=== PATIENT | female | born 1980 | race Caucasian/White ===

== ENCOUNTER → 2017-12-24 | Outpatient (CLI) | payer MEDICARE, MEDICAID ==
[~2017-12-24] MED LIST: BENZ2TAB7 PO; CLON-528 PO; DOCU100C23 PO; DOCU100C59 PO; LEVO75TA PO; LORA10TA7 PO; TRAZ-143 PO
== END ==
LOC: RAD 12:15
PROVIDERS: ATTEND Physician Assistant
DX: S09.90XA Unspecified injury of head, initial encounter (principal); R56.9 Unspecified convulsions; F17.200 Nicotine dependence, unspecified, uncomplicated; X58.XXXA Exposure to other specified factors, initial encounter; Y93.89 Activity, other specified; Y92.89 Other specified places as the place of occurrence of the external cause; Y99.8 Other external cause status
CPT/HCPCS: 95816

== ENCOUNTER 2019-01-19 20:44 | Emergency (ER) | payer MEDICARE, MEDICAID ==
[~2019-01-19] VITALS: Ht 167.6 cm; Wt 93.3 kg
[~2019-01-19 20:44] MED LIST changes: +DOCU-273 PO; -DOCU100C23 PO; -TRAZ-143 PO; +TRAZ-251 PO
[2019-01-19 23:15] VITALS: BP 121/86
[2019-01-19 23:54] LABS: BASOPHILS # (AUTO) 0.1 X10'3 (0-0.2); BASOPHILS % (AUTO) 1.1 % (0-1); EOSINOPHILS # (AUTO) 0.6 X10'3 (0-0.9); EOSINOPHILS % (AUTO) 5.8 % (0-6); HEMATOCRIT 40.1 % (35.0-45.0); HEMOGLOBIN 13.9 g/dl (12.0-16.0); LYMPHOCYTES # (AUTO) 3.8 X10'3 (1.1-4.8); LYMPHOCYTES % (AUTO) 34.8 % (21-51); MEAN CORPUSCULAR HGB CONC 34.6 g/dL (33.0-36.5); MEAN CORPUSCULAR VOLUME 92.4 FL (78-98); MEAN PLATELET VOLUME 7.5 FL (7.4-10.4); MONOCYTES # (AUTO) 0.9 X10'3 (0-0.9); MONOCYTES % (AUTO) 7.9 % (2-12); NEUTROPHILS # (AUTO) 5.5 X10'3 (1.8-7.7); NEUTROPHILS % (AUTO) 50.4 % (42-75); PLATELET COUNT 302 X10'3 (140-440); RED BLOOD COUNT 4.34 X10'6 (4.20-5.60); RED CELL DISTRIBUTION WIDTH 12.8 % (11.5-14.5)
[2019-01-20 00:07] LABS: ALANINE AMINOTRANSFERASE 17 U/L (12-78); ALBUMIN 3.8 G/DL (3.4-5.0); ALKALINE PHOSPHATASE 90 IU/L (46-116); ANION GAP 4 (8-16); ASPARTATE AMINO TRANSFERASE 14 U/L (10-37); BILIRUBIN,TOTAL 0.2 MG/DL (0.1-1.0); BLOOD UREA NITROGEN 13 MG/DL (7-18); BUN/CREATININE RATIO 15.9 (6.6-38.0); CALCIUM 8.5 MG/DL (8.5-10.1); CHLORIDE 107 MMOL/L (99-107); CREATININE 0.82 MG/DL (0.40-0.90); GLUCOSE 93 MG/DL (70-104); LIPASE 140 U/L (73-393); POTASSIUM 3.8 MMOL/L (3.5-5.1); SODIUM 139 MMOL/L (135-145); TOTAL CARBON DIOXIDE 27.6 MMOL/L (24-32); TOTAL PROTEIN 7.6 G/DL (6.4-8.2); eGFR 78 ML/MIN
== END 2019-01-20 01:11 | disposition home or self-care (01) ==
LOC: ER 20:45
DX: R10.13 Epigastric pain (principal); K92.1 Melena; R10.12 Left upper quadrant pain; R68.83 Chills (without fever); R10.30 Lower abdominal pain, unspecified; R14.0 Abdominal distension (gaseous); R61 Generalized hyperhidrosis; E03.9 Hypothyroidism, unspecified; Z79.899 Other long term (current) drug therapy; Z88.0 Allergy status to penicillin; Z87.19 Personal history of other diseases of the digestive system; Z88.8 Allergy status to other drugs, medicaments and biological substances; Z90.49 Acquired absence of other specified parts of digestive tract
CPT/HCPCS: 36415; 80053; 83690; 85025; 99283

== ENCOUNTER 2019-03-21 10:07 | Emergency (ER) | payer MEDICARE, MEDICAID ==
[~2019-03-21] VITALS: Ht 167.6 cm; Wt 84.1 kg
[2019-03-21 13:38] LABS: URINE HCG NEGATIVE (NEG)
[2019-03-21 13:45] LABS: BASOPHILS # (AUTO) 0.1 X10'3 (0-0.2); BASOPHILS % (AUTO) 1.1 % (0-1); EOSINOPHILS # (AUTO) 0.7 X10'3 (0-0.9); EOSINOPHILS % (AUTO) 6.6 % (0-6); HEMATOCRIT 40.1 % (35.0-45.0); HEMOGLOBIN 13.7 g/dl (12.0-16.0); LYMPHOCYTES % (AUTO) 28.7 % (21-51); MEAN CORPUSCULAR HEMOGLOBIN 32.1 PG (27.0-31.0); MEAN CORPUSCULAR HGB CONC 34.1 g/dL (33.0-36.5); MEAN CORPUSCULAR VOLUME 93.9 FL (78-98); MEAN PLATELET VOLUME 7.4 FL (7.4-10.4); MONOCYTES # (AUTO) 0.6 X10'3 (0-0.9); MONOCYTES % (AUTO) 6.2 % (2-12); NEUTROPHILS % (AUTO) 57.4 % (42-75); PLATELET COUNT 325 X10'3 (140-440); RED BLOOD COUNT 4.27 X10'6 (4.20-5.60); RED CELL DISTRIBUTION WIDTH 12.7 % (11.5-14.5); WHITE BLOOD COUNT 10.4 X10'3 (4.5-11.0)
[2019-03-21 13:55] LABS: ALANINE AMINOTRANSFERASE 20 U/L (12-78); ALBUMIN 3.7 G/DL (3.4-5.0); ALKALINE PHOSPHATASE 78 IU/L (46-116); ANION GAP 7 (8-16); ASPARTATE AMINO TRANSFERASE 11 U/L (10-37); BILIRUBIN,TOTAL 0.4 MG/DL (0.1-1.0); BLOOD UREA NITROGEN 10 MG/DL (7-18); BUN/CREATININE RATIO 11.8 (6.6-38.0); CALCIUM 8.5 MG/DL (8.5-10.1); CHLORIDE 108 MMOL/L (99-107); CREATININE 0.85 MG/DL (0.40-0.90); GLUCOSE 85 MG/DL (70-104); LIPASE 73 U/L (73-393); SODIUM 142 MMOL/L (135-145); TOTAL CARBON DIOXIDE 26.9 MMOL/L (24-32); TOTAL PROTEIN 7.5 G/DL (6.4-8.2); eGFR 75 ML/MIN
[2019-03-21 14:33] VITALS: BP 136/76
== END 2019-03-21 14:34 | disposition home or self-care (01) ==
LOC: ER 11:37
DX: G89.29 Other chronic pain (principal); R10.30 Lower abdominal pain, unspecified; E03.9 Hypothyroidism, unspecified; F41.9 Anxiety disorder, unspecified; F31.9 Bipolar disorder, unspecified; F20.9 Schizophrenia, unspecified; Z90.49 Acquired absence of other specified parts of digestive tract; Z88.0 Allergy status to penicillin; Z88.8 Allergy status to other drugs, medicaments and biological substances; Z79.899 Other long term (current) drug therapy
CPT/HCPCS: 36415; 80053; 81025; 83690; 85025; 99283

== ENCOUNTER 2019-08-26 20:42 | Emergency (ER) | payer MEDICARE, MEDICAID ==
[~2019-08-26] VITALS: Ht 165.1 cm; Wt 84.1 kg
[2019-08-26] MEDS ORDERED: OLANZapine 2.5MG tablet PO SCH (22:30)
[2019-08-26] MEDS ORDERED: cetirizine 10mg tablet PO SCH (22:30)
[2019-08-26 22:54] VITALS: BP 135/92
[2019-08-27] MEDS ORDERED: SERT100T10 PO (03:16)
[2019-08-27] MEDS ORDERED: CARI4.5C PO (03:16)
[2019-08-27] MEDS ORDERED: OLAN15TA17 PO (03:16)
== END 2019-08-26 22:55 | disposition home or self-care (01) ==
LOC: ER 20:42
DX: F31.9 Bipolar disorder, unspecified (principal); F20.9 Schizophrenia, unspecified; E03.9 Hypothyroidism, unspecified; F41.9 Anxiety disorder, unspecified; Z76.0 Encounter for issue of repeat prescription; Z90.49 Acquired absence of other specified parts of digestive tract; Z59.0 Homelessness; Z88.8 Allergy status to other drugs, medicaments and biological substances; Z88.0 Allergy status to penicillin; Z79.899 Other long term (current) drug therapy
CPT/HCPCS: 99283

== ENCOUNTER 2019-08-27 00:07 | Emergency (ER) | payer MEDICARE, MEDICAID ==
[~2019-08-27] VITALS: Ht 165.1 cm; Wt 84.1 kg
[2019-08-27 00:10] VITALS: BP 118/79
[2019-08-27 00:40] LABS: URINE HCG NEGATIVE (NEG)
[2019-08-27 00:53] LABS: URINE AMPHETAMINE SCREEN NEGATIVE (Neg); URINE BARBITUATE SCREEN NEGATIVE (Neg); URINE BENZODIAZEPINES SCREEN NEGATIVE (Neg); URINE CANNABINOID SCREEN NEGATIVE (Neg); URINE COCAINE SCREEN NEGATIVE (Neg); URINE METHADONE SCREEN NEGATIVE (Neg); URINE OPIATE SCREEN NEGATIVE (Neg); URINE PHENCYCLIDINE SCREEN NEGATIVE (Neg)
[2019-08-27 01:13] LABS: CLARITY,URINE CLEAR (Clear); COLOR,URINE YELLOW (Yellow); GLUCOSE, URINE NEGATIVE (Neg); KETONES,URINE NEGATIVE (Neg); LEUKOCYTE ESTERASE ,URINE NEGATIVE (Neg); NITRITES, URINE NEGATIVE (Neg); OCCULT BLOOD,URINE NEGATIVE (Neg); PH,URINE 7.5 (4.8-8.0); PROTEIN,URINE NEGATIVE (Neg); UROBILINOGEN,URINE 0.2 E.U/dL (0.2-1.0)
[2019-08-27 01:22] LABS: UA COLLECTION TYPE CLN CATCH MIDSTREAM
[2019-08-27] MEDS ORDERED: CARI4.5C PO (03:16)
[2019-08-27] MEDS ORDERED: OLAN15TA17 PO (03:16)
[2019-08-27] MEDS ORDERED: SERT100T10 PO (03:16)
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
[2019-08-27 03:28] LABS: ALANINE AMINOTRANSFERASE 20 U/L (12-78); ALBUMIN 3.7 G/DL (3.4-5.0); ALBUMIN/GLOBULIN RATIO 1.1 (1.1-1.5); ALKALINE PHOSPHATASE 75 IU/L (46-116); ANION GAP 8 (8-16); ASPARTATE AMINO TRANSFERASE 22 U/L (10-37); BILIRUBIN,TOTAL 0.3 MG/DL (0.1-1.0); BLOOD UREA NITROGEN 11 MG/DL (7-18); BUN/CREATININE RATIO 13.1 (6.6-38.0); CALCIUM 8.1 MG/DL (8.5-10.1); CHLORIDE 106 MMOL/L (99-107); CREATININE 0.84 MG/DL (0.40-0.90); GLUCOSE 94 MG/DL (70-104); POTASSIUM 3.8 MMOL/L (3.5-5.1); SODIUM 141 MMOL/L (135-145); TOTAL CARBON DIOXIDE 27.2 MMOL/L (24-32); TOTAL PROTEIN 7.2 G/DL (6.4-8.2); eGFR 76 ML/MIN
[2019-08-27 03:39] LABS: VALPROATE < 3.0 UG/ML (50-100)
[2019-08-27 03:42] LABS: ACETAMINOPHEN < 2.0 UG/ML (10-30); ETHANOL < 0.010 GM/DL (0.0-0.010)
[2019-08-27 03:43] LABS: BASOPHILS # (AUTO) 0.1 X10'3 (0-0.2); BASOPHILS % (AUTO) 0.9 % (0-1); EOSINOPHILS # (AUTO) 0.3 X10'3 (0-0.9); EOSINOPHILS % (AUTO) 3.3 % (0-6); HEMATOCRIT 38.7 % (35.0-45.0); HEMOGLOBIN 13.1 g/dl (12.0-16.0); LYMPHOCYTES % (AUTO) 38.1 % (21-51); MEAN CORPUSCULAR HGB CONC 33.8 g/dL (33.0-36.5); MEAN CORPUSCULAR VOLUME 91.8 FL (78-98); MEAN PLATELET VOLUME 7.7 FL (7.4-10.4); MONOCYTES # (AUTO) 0.6 X10'3 (0-0.9); MONOCYTES % (AUTO) 6.1 % (2-12); NEUTROPHILS # (AUTO) 5.4 X10'3 (1.8-7.7); NEUTROPHILS % (AUTO) 51.6 % (42-75); PLATELET COUNT 359 X10'3 (140-440); RED BLOOD COUNT 4.21 X10'6 (4.20-5.60); RED CELL DISTRIBUTION WIDTH 12.7 % (11.5-14.5); WHITE BLOOD COUNT 10.4 X10'3 (4.5-11.0)
[2019-08-27] MEDS ORDERED: levoTHYROXINE 75mcg tablet PO SCH (08:00)
[2019-08-27] MEDS ORDERED: CARIPRAZINE 1.5 MG CAPSULE PO SCH (08:00)
[2019-08-27] MEDS ORDERED: OLANZAPINE 5 MG TABLET PO SCH (08:00)
--- NOTE | 2019-08-27 11:54 | NUR ---
[facility] DISCUSS [facility] EVAL AND PLAN OF CARE.
[2019-08-27] MEDS ORDERED: sertraline 50mg tablet PO SCH (21:00)
== END 2019-08-27 15:14 ==
LOC: ER 00:09
DX: R45.851 Suicidal ideations (principal); F31.9 Bipolar disorder, unspecified; F29 Unspecified psychosis not due to a substance or known physiological condition; F20.9 Schizophrenia, unspecified; E03.9 Hypothyroidism, unspecified; F41.9 Anxiety disorder, unspecified; Z90.49 Acquired absence of other specified parts of digestive tract; Z59.0 Homelessness; Z88.0 Allergy status to penicillin; Z88.8 Allergy status to other drugs, medicaments and biological substances; Z79.899 Other long term (current) drug therapy
CPT/HCPCS: 36415; 80053; 80164; 80178; 80305; 80320; 80329; 81003; 81025; 84443; 85025; 99285

== ENCOUNTER 2019-08-27 17:07 | Emergency (ER) | payer MEDICARE, MEDICAID ==
[~2019-08-27] VITALS: Ht 165.1 cm; Wt 84.1 kg
[~2019-08-27 17:07] MED LIST changes: +CARI4.5C PO; +OLAN15TA17 PO; +SERT100T10 PO
[2019-08-27 17:12] VITALS: BP 111/70
== END 2019-08-27 21:21 | disposition home or self-care (01) ==
LOC: ER 17:08
DX: R45.851 Suicidal ideations (principal); F31.9 Bipolar disorder, unspecified; F20.9 Schizophrenia, unspecified; E03.9 Hypothyroidism, unspecified; Z90.49 Acquired absence of other specified parts of digestive tract; Z59.0 Homelessness; Z88.0 Allergy status to penicillin; Z88.8 Allergy status to other drugs, medicaments and biological substances; Z79.899 Other long term (current) drug therapy
CPT/HCPCS: 99284

== ENCOUNTER 2019-12-24 16:37 | Emergency (ER) | payer MEDICARE, MEDICAID ==
[~2019-12-24] VITALS: Ht 165.1 cm; Wt 94.9 kg
[~2019-12-24 16:37] MED LIST changes: -BENZ2TAB7 PO; -CLON-528 PO; -DOCU-273 PO; -DOCU100C59 PO; -LORA10TA7 PO; -TRAZ-251 PO
[2019-12-24] MEDS ORDERED: LORazepam 2 mg/ml vial IV ONE (18:10)
[2019-12-24] MEDS ORDERED: dexamethasone sod phosphate 10mg/ml inj IV STA (18:10)
[2019-12-24] MEDS ORDERED: metoclopramide 5 mg/ml inj IV ONE (18:10)
[2019-12-24] MEDS ORDERED: ketorolac trometh. 30mg/ml inj. IV ONE (18:10)
[2019-12-24] MEDS ORDERED: normal saline 1000ML IV soln IVB ONE (18:10)
[2019-12-24 19:43] VITALS: BP 132/83
--- NOTE | 2019-12-24 19:43 | NUR ---
pt reports no further symptoms. denies any nausea or dietz. able to ambulate with steady gait out to lobby. Pt provided hospital pay cab ride home for DC. stable vs.
== END 2019-12-24 19:46 | disposition home or self-care (01) ==
LOC: ER 16:38
DX: G43.909 Migraine, unspecified, not intractable, without status migrainosus (principal); E03.9 Hypothyroidism, unspecified; F41.9 Anxiety disorder, unspecified; F31.9 Bipolar disorder, unspecified; F20.9 Schizophrenia, unspecified; Z90.49 Acquired absence of other specified parts of digestive tract; Z59.0 Homelessness; Z88.0 Allergy status to penicillin; Z88.8 Allergy status to other drugs, medicaments and biological substances; Z79.899 Other long term (current) drug therapy
CPT/HCPCS: 96361; 96374; 96375; 99284; J1100; J1885; J2060; J2765; J7030

== ENCOUNTER 2020-01-22 19:12 | Emergency (ER) | payer MEDICARE, MEDICAID ==
[~2020-01-22] VITALS: Ht 165.1 cm; Wt 84.1 kg
[2020-01-22] MEDS ORDERED: normal saline 1000ML IV soln IV ONE (19:25)
[2020-01-22] MEDS ORDERED: ketorolac trometh. 30mg/ml inj. IV ONE (19:25)
[2020-01-22] MEDS ORDERED: LORazepam 2 mg/ml vial IV ONE (19:25)
[2020-01-22] MEDS ORDERED: haloperidol lactate 5mg/ml inj IM ONE (19:25)
[2020-01-22] MEDS ORDERED: proCHLORperazine 10 MG/2 ml inj IV ONE (19:25)
--- NOTE | 2020-01-22 21:07 | NUR ---
RE-ASSESSED PT. 2ND BOLUS OF NS 1L STILL INFUSING. ONCE ALL FLUIDS INFUSED, PT WILL BE DC'D PER MD ORDER. PT AWARE. PT RESTING WITH EYES CLOSED CURRENTLY, NO DISTRESS NOTED.
[2020-01-22 21:30] VITALS: BP 112/80
== END 2020-01-22 21:41 | disposition home or self-care (01) ==
LOC: ER 19:13
DX: G43.909 Migraine, unspecified, not intractable, without status migrainosus (principal); E03.9 Hypothyroidism, unspecified; F41.9 Anxiety disorder, unspecified; F31.9 Bipolar disorder, unspecified; R11.2 Nausea with vomiting, unspecified; F20.9 Schizophrenia, unspecified; Z86.69 Personal history of other diseases of the nervous system and sense organs; Z90.49 Acquired absence of other specified parts of digestive tract; Z59.0 Homelessness; Z88.0 Allergy status to penicillin; Z79.899 Other long term (current) drug therapy; Z88.8 Allergy status to other drugs, medicaments and biological substances
CPT/HCPCS: 96361; 96372; 96374; 96375; 99284; J0780; J1630; J1885; J2060; J7030

== ENCOUNTER 2020-02-23 19:56 | Emergency (ER) | payer MEDICARE, MEDICAID ==
[~2020-02-23] VITALS: Ht 162.6 cm; Wt 79.1 kg
[2020-02-23 20:02] VITALS: BP 127/88
== END 2020-02-23 21:16 | disposition home or self-care (01) ==
LOC: ER 19:57
DX: S00.86XD Insect bite (nonvenomous) of other part of head, subsequent encounter (principal); E03.9 Hypothyroidism, unspecified; F41.9 Anxiety disorder, unspecified; F31.9 Bipolar disorder, unspecified; F20.9 Schizophrenia, unspecified; F17.200 Nicotine dependence, unspecified, uncomplicated; Z86.69 Personal history of other diseases of the nervous system and sense organs; Z59.0 Homelessness; Z90.49 Acquired absence of other specified parts of digestive tract; Z88.0 Allergy status to penicillin; Z88.8 Allergy status to other drugs, medicaments and biological substances; Z79.899 Other long term (current) drug therapy
CPT/HCPCS: 99281

== ENCOUNTER 2020-03-16 12:39 | Emergency (ER) | payer MEDICARE, MEDICAID ==
[~2020-03-16] VITALS: Ht 152.4 cm; Wt 94.1 kg
--- NOTE | 2020-03-16 13:10 | NUR ---
concrete laborer at bedside
--- NOTE | 2020-03-16 13:24 | NUR ---
pt is 39 yo female c/o mid abd pain, difficulty urinating and having bowel movement, last BM was yesterday "loose", last time pt urinated was this am, denies plan for suicide "I just want to ...I have no intention of hurting myself", denies homicidal thought/plan, pt lives in [facility], compliant with taking psych meds, c/o delusions, auditory hallucinations, denies drug use, ETOH "one drink every 3-6 months", pt is calm and cooperative,
--- NOTE | 2020-03-16 13:34 | NUR ---
pt amb with steady gait to restroom, has been evaluated by provider
[2020-03-16 13:40] LABS: ALANINE AMINOTRANSFERASE 23 U/L (12-78); ALBUMIN 3.7 G/DL (3.4-5.0); ALKALINE PHOSPHATASE 86 IU/L (46-116); ANION GAP 10 (8-16); ASPARTATE AMINO TRANSFERASE 20 U/L (10-37); BILIRUBIN,TOTAL 0.4 MG/DL (0.1-1.0); BLOOD UREA NITROGEN 16 MG/DL (7-18); BUN/CREATININE RATIO 13.3 (6.6-38.0); CALCIUM 8.3 MG/DL (8.5-10.1); CHLORIDE 103 MMOL/L (99-107); GLUCOSE 86 MG/DL (70-104); POTASSIUM 4.2 MMOL/L (3.5-5.1); SODIUM 139 MMOL/L (135-145); TOTAL CARBON DIOXIDE 26.3 MMOL/L (24-32); TOTAL PROTEIN 7.5 G/DL (6.4-8.2); eGFR 50 ML/MIN
[2020-03-16] MEDS ORDERED: CARI4.5C PO (13:41)
[2020-03-16] MEDS ORDERED: CARI1.5C PO (13:41)
[2020-03-16 13:44] LABS: BASOPHILS # (AUTO) 0.1 X10'3 (0-0.2); BASOPHILS % (AUTO) 0.8 % (0-1); EOSINOPHILS # (AUTO) 0.4 X10'3 (0-0.9); HEMATOCRIT 40.3 % (35.0-45.0); HEMOGLOBIN 13.4 g/dl (12.0-16.0); LYMPHOCYTES # (AUTO) 2.8 X10'3 (1.1-4.8); LYMPHOCYTES % (AUTO) 24.6 % (21-51); MEAN CORPUSCULAR HEMOGLOBIN 30.5 PG (27.0-31.0); MEAN CORPUSCULAR HGB CONC 33.4 g/dL (33.0-36.5); MEAN CORPUSCULAR VOLUME 91.4 FL (78-98); MEAN PLATELET VOLUME 7.6 FL (7.4-10.4); MONOCYTES # (AUTO) 0.7 X10'3 (0-0.9); MONOCYTES % (AUTO) 6.2 % (2-12); NEUTROPHILS # (AUTO) 7.3 X10'3 (1.8-7.7); NEUTROPHILS % (AUTO) 64.4 % (42-75); PLATELET COUNT 315 X10'3 (140-440); RED BLOOD COUNT 4.41 X10'6 (4.20-5.60); RED CELL DISTRIBUTION WIDTH 13.1 % (11.5-14.5); WHITE BLOOD COUNT 11.3 X10'3 (4.5-11.0)
[2020-03-16 13:53] LABS: ETHANOL < 0.010 GM/DL (0.0-0.010)
[2020-03-16] MEDS ORDERED: LEVO100T PO (13:55)
[2020-03-16 14:09] LABS: CLARITY,URINE CLEAR (Clear); COLOR,URINE YELLOW (Yellow); GLUCOSE, URINE NEGATIVE (Neg); KETONES,URINE NEGATIVE (Neg); LEUKOCYTE ESTERASE ,URINE NEGATIVE (Neg); NITRITES, URINE NEGATIVE (Neg); OCCULT BLOOD,URINE TRACE-INTACT (Neg); PH,URINE 6.5 (4.8-8.0); PROTEIN,URINE NEGATIVE (Neg); UROBILINOGEN,URINE 0.2 E.U/dL (0.2-1.0)
[2020-03-16 14:10] LABS: URINE HCG NEGATIVE (NEG)
[2020-03-16 14:11] LABS: UA COLLECTION TYPE CLN CATCH MIDSTREAM
[2020-03-16 14:16] LABS: URINE AMPHETAMINE SCREEN NEGATIVE (Neg); URINE BARBITUATE SCREEN NEGATIVE (Neg); URINE BENZODIAZEPINES SCREEN NEGATIVE (Neg); URINE CANNABINOID SCREEN NEGATIVE (Neg); URINE COCAINE SCREEN NEGATIVE (Neg); URINE METHADONE SCREEN NEGATIVE (Neg); URINE OPIATE SCREEN NEGATIVE (Neg); URINE PHENCYCLIDINE SCREEN NEGATIVE (Neg)
[2020-03-16 14:19] LABS: SQUAMOUS EPITHELIAL CELL,UR MANY /LPF (FEW)
[2020-03-16 14:20] LABS: RBC,URINE 0-2 /HPF (0-2); WBC,URINE NONE SEEN /HPF (0-4)
--- NOTE | 2020-03-16 14:20 | NUR ---
pt is dressed in green scrubs, gave her sandwich, yogurt and water, juli well, no n/v
[2020-03-16 14:21] LABS: BACTERIA,URINE FEW /HPF (Neg)
--- NOTE | 2020-03-16 14:22 | NUR ---
clothing sheet done
--- NOTE | 2020-03-16 14:58 | NUR ---
report to Lupe RN, pt amb with steady gait from main ER to overflow
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
--- NOTE | 2020-03-16 17:09 | NUR ---
Pt continues to sleep. RR regular
--- NOTE | 2020-03-16 21:48 | NUR ---
Pt is sleeping comfortably on her right side with visible respirations and in direct line of sight of the nursing station. She does not show signs of pain or distress at this time.
--- NOTE | 2020-03-16 23:18 | NUR ---
Justice munson in [facility], [place] - 03/16/20 at 2318 by RU Patient is sleeping on his right side, in view from the nursing station.
--- NOTE | 2020-03-16 23:21 | NUR ---
Patient is up to bathroom to void. Normal gait. Patient in no distress save for a complaint of exhaustion. Patient tells this signwriter she rarely sleeps, even with medications. Patient is given warm blankets. Patient denies BM today, states loose stools yesterday. No complaints of pain at this time.
--- NOTE | 2020-03-17 03:03 | NUR ---
Patient sleeping on her back. In view from the nursing station.
--- NOTE | 2020-03-17 04:12 | NUR ---
Patient sleeping quietly, in view from nursing station.
--- NOTE | 2020-03-17 05:17 | NUR ---
Patient awoke for vital signs, returned to sleep. Patient repositions self.
[2020-03-17] MEDS ORDERED: OLANZAPINE 5 MG TABLET PO SCH (11:15)
[2020-03-17] MEDS ORDERED: levoTHYROXINE 100mcg tablet PO SCH (11:15)
[2020-03-17] MEDS ORDERED: CARIPRAZINE 1.5 MG CAPSULE PO SCH ×2 (11:15→21:00)
[2020-03-17 12:45] VITALS: BP 110/72
[2020-03-17] MEDS ORDERED: sertraline 50mg tablet PO SCH (21:00)
== END 2020-03-17 12:51 | disposition home or self-care (01) ==
LOC: ER 12:40
DX: R45.851 Suicidal ideations (principal); R53.81 Other malaise; R44.0 Auditory hallucinations; R11.10 Vomiting, unspecified; K59.00 Constipation, unspecified; E03.9 Hypothyroidism, unspecified; F41.9 Anxiety disorder, unspecified; F31.9 Bipolar disorder, unspecified; F20.9 Schizophrenia, unspecified; Z86.69 Personal history of other diseases of the nervous system and sense organs; Z90.49 Acquired absence of other specified parts of digestive tract; Z59.0 Homelessness; Z88.0 Allergy status to penicillin; Z88.8 Allergy status to other drugs, medicaments and biological substances; Z79.899 Other long term (current) drug therapy
CPT/HCPCS: 36415; 80053; 80305; 80320; 81001; 81025; 84439; 84443; 84480; 85025; 99285

== ENCOUNTER 2020-04-19 14:05 | Emergency (ER) | payer MEDICARE, MEDICAID ==
[~2020-04-19] VITALS: Ht 162.6 cm; Wt 79.5 kg
[~2020-04-19 14:05] MED LIST changes: +CARI1.5C PO; +LEVO100T PO; -LEVO75TA PO
--- NOTE | 2020-04-19 14:50 | NUR ---
Pt ambulatory to the restroom and provided a urine. Pt also relinquished all of her belongings and they have been secured. Pt is calm and cooperative with the staff.
[2020-04-19 15:06] LABS: CLARITY,URINE CLEAR (Clear); COLOR,URINE STRAW (Yellow); GLUCOSE, URINE NEGATIVE (Neg); KETONES,URINE NEGATIVE (Neg); LEUKOCYTE ESTERASE ,URINE SMALL (Neg); NITRITES, URINE NEGATIVE (Neg); OCCULT BLOOD,URINE MODERATE (Neg); PROTEIN,URINE NEGATIVE (Neg); UROBILINOGEN,URINE 0.2 E.U/dL (0.2-1.0)
[2020-04-19 15:07] LABS: UA COLLECTION TYPE CLN CATCH MIDSTREAM
[2020-04-19 15:13] LABS: BACTERIA,URINE FEW /HPF (Neg); SQUAMOUS EPITHELIAL CELL,UR FEW /LPF (FEW); WBC,URINE 0-4 /HPF (0-4)
[2020-04-19 15:24] LABS: BASOPHILS % (AUTO) 0.1 % (0-1); EOSINOPHILS # (AUTO) 0.3 X10'3 (0-0.9); EOSINOPHILS % (AUTO) 3.2 % (0-6); HEMATOCRIT 41.3 % (35.0-45.0); HEMOGLOBIN 14.1 g/dl (12.0-16.0); LYMPHOCYTES # (AUTO) 2.9 X10'3 (1.1-4.8); LYMPHOCYTES % (AUTO) 27.5 % (21-51); MEAN CORPUSCULAR HEMOGLOBIN 31.8 PG (27.0-31.0); MEAN CORPUSCULAR HGB CONC 34.2 g/dL (33.0-36.5); MEAN PLATELET VOLUME 7.8 FL (7.4-10.4); MONOCYTES # (AUTO) 0.6 X10'3 (0-0.9); MONOCYTES % (AUTO) 5.8 % (2-12); NEUTROPHILS # (AUTO) 6.6 X10'3 (1.8-7.7); NEUTROPHILS % (AUTO) 63.4 % (42-75); PLATELET COUNT 342 X10'3 (140-440); RED BLOOD COUNT 4.44 X10'6 (4.20-5.60); RED CELL DISTRIBUTION WIDTH 13.3 % (11.5-14.5); WHITE BLOOD COUNT 10.4 X10'3 (4.5-11.0)
[2020-04-19] MEDS ORDERED: SERT100T PO (15:35)
[2020-04-19 15:40] LABS: ALANINE AMINOTRANSFERASE 21 U/L (12-78); ALBUMIN 3.9 G/DL (3.4-5.0); ALKALINE PHOSPHATASE 94 IU/L (46-116); ANION GAP 5 (8-16); ASPARTATE AMINO TRANSFERASE 19 U/L (10-37); BILIRUBIN,TOTAL 0.3 MG/DL (0.1-1.0); BLOOD UREA NITROGEN 11 MG/DL (7-18); BUN/CREATININE RATIO 12.8 (6.6-38.0); CALCIUM 8.7 MG/DL (8.5-10.1); CHLORIDE 103 MMOL/L (99-107); CREATININE 0.86 MG/DL (0.40-0.90); GLUCOSE 89 MG/DL (70-104); SODIUM 137 MMOL/L (135-145); TOTAL CARBON DIOXIDE 28.6 MMOL/L (24-32); TOTAL PROTEIN 7.8 G/DL (6.4-8.2); eGFR 73 ML/MIN
--- NOTE | 2020-04-19 15:47 | NUR ---
Pt is resting in a position of comfort on the gurney. Pt is in line of sight of the nurse's station.
[2020-04-19 15:51] LABS: ETHANOL < 0.010 GM/DL (0.0-0.010)
--- NOTE | 2020-04-19 16:51 | NUR ---
Pt given a sandwich and some juice for a snack at this time. Report to Kaiden Cobb RN.
[2020-04-19 17:14] LABS: URINE HCG NEGATIVE (NEG)
[2020-04-19 17:22] LABS: URINE AMPHETAMINE SCREEN NEGATIVE (Neg); URINE BARBITUATE SCREEN NEGATIVE (Neg); URINE BENZODIAZEPINES SCREEN NEGATIVE (Neg); URINE CANNABINOID SCREEN NEGATIVE (Neg); URINE COCAINE SCREEN NEGATIVE (Neg); URINE METHADONE SCREEN NEGATIVE (Neg); URINE OPIATE SCREEN NEGATIVE (Neg); URINE PHENCYCLIDINE SCREEN NEGATIVE (Neg)
--- NOTE | 2020-04-19 17:29 | NUR ---
PT IN ROOM 22, LAYING ON RIGHT SIDE, NO DISTRESS NOTED. DIET SENT DOWN TO [facility]. CALLED LAB TO ADD TOX ACREEN. WILL CONTINUE TO MONITOR.
--- NOTE | 2020-04-19 17:59 | NUR ---
PT SITTING UP IN BED COLORING.
--- NOTE | 2020-04-19 18:01 | NUR ---
PACKET FAXED TO [facility]
--- NOTE | 2020-04-19 18:45 | NUR ---
Patient is sleeping quietly, in view from nursing station.
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
[2020-04-19] MEDS ORDERED: acetaminophen 325mg tablet PO ONE (19:55)
--- NOTE | 2020-04-19 20:00 | NUR ---
Patient ate a full dinner earlier. He is now sleeping quietly on his right side. In full view from the nursing station. Patient is quiet and cooperative with staff.
[2020-04-19] MEDS: CARIPRAZINE 1.5 MG CAPSULE PO SCH (20:20)
[2020-04-19] MEDS: sertraline 50mg tablet PO SCH (20:20)
--- NOTE | 2020-04-19 21:35 | NUR ---
Patient up to bathroom, he ambulates without problem. No distress. Back to bed and sleep.
--- NOTE | 2020-04-19 23:30 | NUR ---
Patient sleeping quietly on his right side.
--- NOTE | 2020-04-20 01:44 | NUR ---
Patient is sleeping quietly on her right side.
[2020-04-20] MEDS ORDERED: LORazepam 1 MG tablet PO ONE (03:15)
--- NOTE | 2020-04-20 03:24 | NUR ---
Patient awoke and was experiencing anxiety. This copywriter consulted with ER MD. PO Ativan 1mg given. Patient is medication compliant.
--- NOTE | 2020-04-20 04:00 | NUR ---
Sleeping quietly. supine position. Good color, RR is normal.
--- NOTE | 2020-04-20 06:21 | NUR ---
Patient is sleeping quietly on her left side.
--- NOTE | 2020-04-20 06:31 | NUR ---
Patient is sleeping quietly on his left side. No distress.
--- NOTE | 2020-04-20 08:19 | NUR ---
UP TO BR, ATE BREAKFAST. NO NEEDS AT THIS TIME
[2020-04-20] MEDS: OLANZAPINE 5 MG TABLET PO SCH (08:57)
[2020-04-20] MEDS: levoTHYROXINE 100mcg tablet PO SCH (08:57)
--- NOTE | 2020-04-20 09:27 | NUR ---
PT RESTING WITH EYES CLOSED ON BACK WITH SNORING RESP.
--- NOTE | 2020-04-20 11:34 | NUR ---
PT CONTINUES RESTING ON BACK RR EQUAL AND UNLABORED
[2020-04-20] MEDS: CARIPRAZINE 1.5 MG CAPSULE PO SCH ×2 (12:00→20:22)
--- NOTE | 2020-04-20 12:47 | NUR ---
pt resting with eyes closed on right side rr equal and unlabored.
--- NOTE | 2020-04-20 13:50 | NUR ---
PT AWAKE EATING LUNCH.
--- NOTE | 2020-04-20 14:50 | NUR ---
PT RESTING ON BACK RR EQUAL AND UNLABORED
--- NOTE | 2020-04-20 16:03 | NUR ---
PT RESTING ON BACK RR EQUAL AND UNLABORED. SNORING RESP
--- NOTE | 2020-04-20 16:57 | NUR ---
UP TO BR STEADY GAIT
[2020-04-20] MEDS ORDERED: acetaminophen 325mg tablet PO PRN (17:25)
--- NOTE | 2020-04-20 17:37 | NUR ---
PT C/O PAIN TO LEFT RIB AND BACK. ORDER FOR TYLENOL RECEIVED AND GIVEN. PT REQUESTED TO COLOR. CRAYONS AND COLOR BOOK GIVEN
--- NOTE | 2020-04-20 19:00 | NUR ---
Pt resting quietly, respirations normal, no s/s of distress.
--- NOTE | 2020-04-20 19:48 | NUR ---
Pt resting quietly, respirations normal, no s/s of distress.
[2020-04-20] MEDS: sertraline 50mg tablet PO SCH (20:23)
--- NOTE | 2020-04-20 21:32 | NUR ---
Pt up to restroom.
--- NOTE | 2020-04-20 22:39 | NUR ---
Pt resting quietly, respirations normal, no s/s of distress.
--- NOTE | 2020-04-21 00:39 | NUR ---
Pt up to restroom. Requested water.
[2020-04-21] MEDS ORDERED: LORazepam 1 MG tablet PO ONE (02:10)
[2020-04-21] MEDS: levoTHYROXINE 100mcg tablet PO SCH (08:09)
[2020-04-21] MEDS: OLANZAPINE 5 MG TABLET PO SCH (08:09)
[2020-04-21] MEDS: CARIPRAZINE 1.5 MG CAPSULE PO SCH ×2 (08:10→20:49)
[2020-04-21] MEDS ORDERED: nicotine 14mg patch - 24hr TD ONE (13:25)
--- NOTE | 2020-04-21 13:25 | NUR ---
SPOKE TO MD ABOUT PATIENT NEEDING NICOTINE PATCH, ORDERS PUT IN BY
--- NOTE | 2020-04-21 13:54 | NUR ---
PT. VOMITING, WAS INFORMED AND ORDERS WERE PUT IN BY .
[2020-04-21] MEDS ORDERED: haloperidol lactate 5mg/ml inj IM ONE (13:55)
--- NOTE | 2020-04-21 16:03 | NUR ---
PATIENT IS SLEEPING
--- NOTE | 2020-04-21 19:22 | NUR ---
Pt lying quietly in bed. She ate snack. Pleasant and cooperative. Denied SI. Pt sleepy dozed during conversation.
[2020-04-21] MEDS: sertraline 50mg tablet PO SCH (20:48)
--- NOTE | 2020-04-21 20:58 | NUR ---
Pt sleeping awakened easily for medications went back to sleep.
--- NOTE | 2020-04-21 23:14 | NUR ---
Pt. in bed sleeping/resting quietly.
--- NOTE | 2020-04-22 00:43 | NUR ---
Pt awake sitting quietly at bedside coloring.
--- NOTE | 2020-04-22 01:03 | NUR ---
Pt up to Nurses station talked about possible discharge plans. Declined any medications to help her sleep. Sitting at bedside looking at magazines at this time.
[2020-04-22 06:33] VITALS: BP 120/65
--- NOTE | 2020-04-22 07:50 | NUR ---
Pharmacy notified pt meds not all available and someone is to bring down.
[2020-04-22] MEDS: CARIPRAZINE 1.5 MG CAPSULE PO SCH (08:08)
[2020-04-22] MEDS: OLANZAPINE 5 MG TABLET PO SCH (08:08)
[2020-04-22] MEDS: levoTHYROXINE 100mcg tablet PO SCH (08:08)
--- NOTE | 2020-04-22 09:40 | NUR ---
Pt speaking with [facility] worker at bedside.
--- NOTE | 2020-04-22 13:14 | NUR ---
pt ate 100% of her lunch
--- NOTE | 2020-04-22 14:00 | NUR ---
Pt awaiting transport to go to [facility].
== END 2020-04-22 16:22 ==
LOC: ER 14:06
DX: F79 Unspecified intellectual disabilities (principal); E03.9 Hypothyroidism, unspecified; F41.9 Anxiety disorder, unspecified; F31.9 Bipolar disorder, unspecified; F20.9 Schizophrenia, unspecified; Z86.69 Personal history of other diseases of the nervous system and sense organs; Z90.89 Acquired absence of other organs; Z59.0 Homelessness; Z88.0 Allergy status to penicillin; Z88.8 Allergy status to other drugs, medicaments and biological substances; Z79.899 Other long term (current) drug therapy
CPT/HCPCS: 36415; 80053; 80305; 80320; 81001; 81025; 84443; 85025; 96372; 99285

== ENCOUNTER 2020-10-01 15:39 | Emergency (ER) | payer MEDICARE, MEDICAID ==
[~2020-10-01] VITALS: Ht 157.5 cm; Wt 98.2 kg
[~2020-10-01 15:39] MED LIST changes: +SERT100T PO; -SERT100T10 PO
[2020-10-01 17:05] LABS: URINE HCG NEGATIVE (NEG)
[2020-10-01 17:16] LABS: URINE AMPHETAMINE SCREEN NEGATIVE (Neg); URINE BARBITUATE SCREEN NEGATIVE (Neg); URINE BENZODIAZEPINES SCREEN NEGATIVE (Neg); URINE CANNABINOID SCREEN NEGATIVE (Neg); URINE COCAINE SCREEN NEGATIVE (Neg); URINE METHADONE SCREEN NEGATIVE (Neg); URINE OPIATE SCREEN NEGATIVE (Neg); URINE PHENCYCLIDINE SCREEN NEGATIVE (Neg)
[2020-10-01 17:28] LABS: BASOPHILS # (AUTO) 0.1 X10'3 (0-0.2); BASOPHILS % (AUTO) 1.2 % (0-1); EOSINOPHILS # (AUTO) 0.4 X10'3 (0-0.9); EOSINOPHILS % (AUTO) 3.5 % (0-6); HEMATOCRIT 39.6 % (35.0-45.0); HEMOGLOBIN 13.4 g/dl (12.0-16.0); LYMPHOCYTES # (AUTO) 3.4 X10'3 (1.1-4.8); MEAN CORPUSCULAR HEMOGLOBIN 30.9 PG (27.0-31.0); MEAN CORPUSCULAR HGB CONC 33.7 g/dL (33.0-36.5); MEAN CORPUSCULAR VOLUME 91.8 FL (78-98); MEAN PLATELET VOLUME 7.6 FL (7.4-10.4); MONOCYTES # (AUTO) 0.7 X10'3 (0-0.9); MONOCYTES % (AUTO) 6.9 % (2-12); NEUTROPHILS # (AUTO) 6.2 X10'3 (1.8-7.7); NEUTROPHILS % (AUTO) 57.4 % (42-75); PLATELET COUNT 300 X10'3 (140-440); RED BLOOD COUNT 4.32 X10'6 (4.20-5.60); RED CELL DISTRIBUTION WIDTH 12.7 % (11.5-14.5); WHITE BLOOD COUNT 10.9 X10'3 (4.5-11.0)
[2020-10-01 17:34] LABS: ALANINE AMINOTRANSFERASE 27 U/L (12-78); ALBUMIN 3.7 G/DL (3.4-5.0); ALKALINE PHOSPHATASE 91 IU/L (46-116); ANION GAP 9 (8-16); ASPARTATE AMINO TRANSFERASE 25 U/L (10-37); BILIRUBIN,TOTAL 0.3 MG/DL (0.1-1.0); BLOOD UREA NITROGEN 13 MG/DL (7-18); BUN/CREATININE RATIO 18.3 (6.6-38.0); CHLORIDE 104 MMOL/L (99-107); CREATININE 0.71 MG/DL (0.40-0.90); GLUCOSE 91 MG/DL (70-104); POTASSIUM 4.1 MMOL/L (3.5-5.1); SODIUM 142 MMOL/L (135-145); TOTAL PROTEIN 7.4 G/DL (6.4-8.2); eGFR > 90 ML/MIN
[2020-10-01] MEDS ORDERED: NAPR-1166 PO (17:41)
[2020-10-01 17:44] LABS: ETHANOL < 0.010 GM/DL (0.0-0.010)
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
--- NOTE | 2020-10-01 19:27 | NUR ---
One to one with the patient who was very cooperative but sleepy. She stated that prior to calling for help she had taken all of her evening medications. She stated that "I've been experiencing different mental developements. I've been blanking out and was loosing track of time. I have a delerium of voices telling me what I can and can't do. They tell me to kill myself" She also reports visual hallucinations of shadows and feels like people are constantly touching her. She was seen by the [facility] heat treat worker and they are going to try and safety plan her to the [facility] tomorrow with support from the [facility] team.
[2020-10-01] MEDS ORDERED: naproxen 375mg tablet PO PRN (19:40)
[2020-10-01] MEDS ORDERED: CARIPRAZINE 1.5 MG CAPSULE PO PRN (19:40)
[2020-10-01] MEDS: sertraline 50mg tablet PO SCH (19:54)
--- NOTE | 2020-10-01 22:19 | NUR ---
The patient has been sleeping soundly since being seen by [facility] odd bundle worker. She is snoring.
--- NOTE | 2020-10-01 23:23 | NUR ---
The patient was up to the bathroom. Stated she was doing well and asked if mental health was coming in to see her. She was reassured that mental health would be talking with her again in the morning.
--- NOTE | 2020-10-02 01:00 | NUR ---
The patient appears to be sleeping
--- NOTE | 2020-10-02 02:24 | NUR ---
The patient appears to be sleeping
--- NOTE | 2020-10-02 05:47 | NUR ---
The patient appears to be sleeping at this time.
[2020-10-02] MEDS: olanzapine 10mg tablet PO SCH (08:29)
[2020-10-02] MEDS: CARIPRAZINE 1.5 MG CAPSULE PO SCH (08:29)
[2020-10-02] MEDS: levoTHYROXINE 100mcg tablet PO SCH (08:29)
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
--- NOTE | 2020-10-02 10:30 | NUR ---
Pt. informed that she will not be accepted to the [facility] because she is unable to follow [facility] rules.
--- NOTE | 2020-10-02 11:15 | NUR ---
COVID NEHEMIAH test performed and sent to lab. Results pending.
--- NOTE | 2020-10-02 12:00 | NUR ---
CALLIE (PT'S ROOMMATE): [phone] NATE (PT'S LANDLORD): [phone]
--- NOTE | 2020-10-02 13:00 | NUR ---
Pt. awake and eating lunch and bedside.
--- NOTE | 2020-10-02 15:00 | NUR ---
Pt. asleep on right side. Normal R&R of respirations noted. Pt. in no apparent distress.
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
--- NOTE | 2020-10-02 17:37 | NUR ---
Pt. talked at length of her feelings of not being in control of her own life. Pt. states, "I know the [facility] didn't want me to leave, but I'm my own person and sometimes you have to find out by mistakes". Pt. reported feeling depressed about her life-long mental illness. Pt. states, "I'm 40 now and I can't have kids". Pt. reports she does feel hopeful about the future, pt. states, "They are creating a lot of great new medicines and I'm hopeful for that". Pt. reports she is thankful when people listen to her.
--- NOTE | 2020-10-02 20:08 | NUR ---
Report to [facility]
--- NOTE | 2020-10-02 20:15 | NUR ---
The patient was accepted at [facility] in [facility]. Accepting MD is Dr. Dorman. Nurse to nurse to be done in the am,
[2020-10-02] MEDS: sertraline 50mg tablet PO SCH (20:22)
--- NOTE | 2020-10-02 20:29 | NUR ---
The patient appears very disheveled and has her hair sticking up all over. She was polite during the one to one nursing assessment. She stated that she has been feeling very tired. She stated voices are much less than prior to coming to the ER. She was made aware of plans to transfer to [facility] in the am.
--- NOTE | 2020-10-02 22:11 | NUR ---
The patient is awake and up to the bathroom. She is polite. She is asking questions about her placement.
--- NOTE | 2020-10-03 00:17 | NUR ---
The patient appears to be sleeping
--- NOTE | 2020-10-03 03:23 | NUR ---
The patient has been sleeping but restless at times.
--- NOTE | 2020-10-03 05:05 | NUR ---
The patient appears to be sleeping.
[2020-10-03 06:09] VITALS: BP 107/60
--- NOTE | 2020-10-03 06:39 | NUR ---
[facility] report from [facility], pt was just up to the nurses station asking about the facility she is to go to, calm, no needs at this time
--- NOTE | 2020-10-03 07:29 | NUR ---
pt sleeping no needs at this time
--- NOTE | 2020-10-03 08:25 | NUR ---
spoke to Farhana at [facility], gave nurse to nurse report
[2020-10-03] MEDS: CARIPRAZINE 1.5 MG CAPSULE PO SCH (08:28)
[2020-10-03] MEDS: olanzapine 10mg tablet PO SCH (08:28)
[2020-10-03] MEDS: levoTHYROXINE 100mcg tablet PO SCH (08:28)
--- NOTE | 2020-10-03 08:44 | NUR ---
pt awake, accepted meds, ate breakfast, no needs at this time
--- NOTE | 2020-10-03 09:30 | NUR ---
pt ambulated to the br, calm, no needs at this time
--- NOTE | 2020-10-03 10:31 | NUR ---
pt is supine in bed, no needs at this time
--- NOTE | 2020-10-03 11:50 | NUR ---
Farhana at [facility] called for ETA
--- NOTE | 2020-10-03 12:03 | NUR ---
pt sitting on the end of her bed, calm, no needs at this time
--- NOTE | 2020-10-03 14:22 | NUR ---
PT SUPINE IN BED, ASLEEP, REGULAR BREATHING PRESENT, NO NEEDS AT THIS TIME
[2020-10-03] MEDS ORDERED: nicotine 14mg patch - 24hr TD ONE (14:55)
--- NOTE | 2020-10-03 15:30 | NUR ---
PT IS AWAKE, UP TO THE NURSES STATION, GETTING WORRIED ABOUT BEING ABLE TO SMOKE
--- NOTE | 2020-10-03 16:30 | NUR ---
PT IS AWAKE, WANTS TO CHANGE SHEETS ON HER BED
== END 2020-10-03 17:42 ==
LOC: ER 15:40
DX: F20.9 Schizophrenia, unspecified (principal); Z20.822 Contact with and (suspected) exposure to COVID-19; F25.9 Schizoaffective disorder, unspecified; G40.909 Epilepsy, unspecified, not intractable, without status epilepticus; E03.9 Hypothyroidism, unspecified; G89.29 Other chronic pain; F41.9 Anxiety disorder, unspecified; F32.9 Major depressive disorder, single episode, unspecified; F17.200 Nicotine dependence, unspecified, uncomplicated; Z88.0 Allergy status to penicillin; Z88.8 Allergy status to other drugs, medicaments and biological substances; Z79.899 Other long term (current) drug therapy
CPT/HCPCS: 36415; 80053; 80305; 80320; 81025; 84443; 85025; 87426; 99285

== ENCOUNTER 2021-03-08 14:22 | Emergency (ER) | payer MEDICARE, MEDICAID ==
[~2021-03-08] VITALS: Ht 165.1 cm; Wt 99.0 kg
[~2021-03-08 14:22] MED LIST changes: +NAPR-1166 PO; -OLAN15TA17 PO; +OLAN15TA35 PO
[2021-03-08 14:38] VITALS: BP 123/77
== END 2021-03-08 15:05 | disposition home or self-care (01) ==
LOC: ER 14:23
DX: Z20.822 Contact with and (suspected) exposure to COVID-19 (principal); G40.909 Epilepsy, unspecified, not intractable, without status epilepticus; E03.9 Hypothyroidism, unspecified; G89.29 Other chronic pain; Z88.0 Allergy status to penicillin; Z88.8 Allergy status to other drugs, medicaments and biological substances; Z79.899 Other long term (current) drug therapy; Z90.49 Acquired absence of other specified parts of digestive tract
CPT/HCPCS: 87635; 99283; C9803

== ENCOUNTER 2021-04-19 12:01 | Emergency (ER) | payer MEDICARE, MEDICAID ==
[~2021-04-19] VITALS: Ht 165.1 cm; Wt 100.0 kg
[2021-04-19 12:12] VITALS: BP 119/70
[2021-04-19 12:33] LABS: URINE HCG NEGATIVE (NEG)
[2021-04-19 12:34] LABS: UA COLLECTION TYPE CLN CATCH MIDSTREAM
[2021-04-19 12:36] LABS: CLARITY,URINE CLOUDY (Clear); COLOR,URINE YELLOW (Yellow); PH,URINE 6.5 (4.8-8.0)
[2021-04-19 12:37] LABS: GLUCOSE, URINE NEGATIVE (Neg); KETONES,URINE NEGATIVE (Neg); LEUKOCYTE ESTERASE ,URINE NEGATIVE (Neg); NITRITES, URINE NEGATIVE (Neg); OCCULT BLOOD,URINE LARGE (Neg); PROTEIN,URINE TRACE mg/dl (Neg); UROBILINOGEN,URINE 0.2 E.U/dL (0.2-1.0)
[2021-04-19 12:41] LABS: AMORPHOUS URATES 1+; BACTERIA,URINE FEW /HPF (Neg); MUCUS STRANDS FEW /LPF (Neg); RBC,URINE 0-2 /HPF (0-2); SQUAMOUS EPITHELIAL CELL,UR MANY /LPF (FEW); WBC,URINE 0-4 /HPF (0-4)
== END 2021-04-19 13:56 | disposition home or self-care (01) ==
LOC: ER 12:01
DX: E03.9 Hypothyroidism, unspecified (principal); G89.29 Other chronic pain; F41.9 Anxiety disorder, unspecified; F31.9 Bipolar disorder, unspecified; F20.9 Schizophrenia, unspecified; Z32.02 Encounter for pregnancy test, result negative; Z90.89 Acquired absence of other organs; Z88.0 Allergy status to penicillin; Z88.8 Allergy status to other drugs, medicaments and biological substances; Z79.899 Other long term (current) drug therapy
CPT/HCPCS: 81001; 81025; 99283

== ENCOUNTER 2021-12-20 10:05 | Emergency (ER) | payer OTHER, MEDICAID ==
[~2021-12-20] VITALS: Ht 165.1 cm; Wt 95.0 kg
[~2021-12-20 10:05] MED LIST changes: -CARI1.5C PO; -CARI4.5C PO; +CARI6CAP PO; +CHOL500050 PO; +CIME200T12 PO; +DICL25TA10 PO; -NAPR-1166 PO; +NICO-687 TD; +NICO-907 BC; +OLAN10TA3 PO; -OLAN15TA35 PO
[2021-12-20 11:07] VITALS: BP 136/89
[2021-12-20 11:59] LABS: BASOPHILS # (AUTO) 0.1 X10'3 (0-0.2); BASOPHILS % (AUTO) 0.7 % (0-1); EOSINOPHILS # (AUTO) 0.2 X10'3 (0-0.9); EOSINOPHILS % (AUTO) 1.5 % (0-6); HEMATOCRIT 38.9 % (35.0-45.0); HEMOGLOBIN 13.1 g/dl (12.0-16.0); LYMPHOCYTES # (AUTO) 3.1 X10'3 (1.1-4.8); MEAN CORPUSCULAR HEMOGLOBIN 29.8 PG (27.0-31.0); MEAN CORPUSCULAR HGB CONC 33.5 g/dL (33.0-36.5); MEAN CORPUSCULAR VOLUME 88.9 FL (78-98); MEAN PLATELET VOLUME 7.3 FL (7.4-10.4); MONOCYTES # (AUTO) 0.5 X10'3 (0-0.9); MONOCYTES % (AUTO) 4.9 % (2-12); NEUTROPHILS # (AUTO) 6.9 X10'3 (1.8-7.7); NEUTROPHILS % (AUTO) 63.9 % (42-75); PLATELET COUNT 312 X10'3 (140-440); RED BLOOD COUNT 4.38 X10'6 (4.20-5.60); WHITE BLOOD COUNT 10.7 X10'3 (4.5-11.0)
[2021-12-20 12:11] LABS: ALANINE AMINOTRANSFERASE 15 U/L (12-78); ALBUMIN 3.6 G/DL (3.4-5.0); ALBUMIN/GLOBULIN RATIO 0.9 (1.1-1.5); ALKALINE PHOSPHATASE 85 IU/L (46-116); ANION GAP 7 (8-16); ASPARTATE AMINO TRANSFERASE 14 U/L (10-37); BILIRUBIN,TOTAL 0.4 MG/DL (0.1-1.0); BLOOD UREA NITROGEN 11 MG/DL (7-18); BUN/CREATININE RATIO 13.4 (6.6-38.0); CALCIUM 8.7 MG/DL (8.5-10.1); CHLORIDE 106 MMOL/L (99-107); CREATININE 0.82 MG/DL (0.40-0.90); GLUCOSE 94 MG/DL (70-104); POTASSIUM 4.3 MMOL/L (3.5-5.1); SODIUM 141 MMOL/L (135-145); TOTAL CARBON DIOXIDE 28.1 MMOL/L (24-32); TOTAL PROTEIN 7.7 G/DL (6.4-8.2); eGFR 77 ML/MIN
== END 2021-12-20 14:19 | disposition home or self-care (01) ==
LOC: ER 10:05
DX: M62.838 Other muscle spasm (principal); R20.0 Anesthesia of skin; E03.9 Hypothyroidism, unspecified; G89.29 Other chronic pain; F41.9 Anxiety disorder, unspecified; F31.9 Bipolar disorder, unspecified; F20.9 Schizophrenia, unspecified; Z86.69 Personal history of other diseases of the nervous system and sense organs; Z90.89 Acquired absence of other organs; Z88.0 Allergy status to penicillin; Z88.8 Allergy status to other drugs, medicaments and biological substances; Z79.899 Other long term (current) drug therapy
CPT/HCPCS: 36415; 80053; 85025; 93005; 99284

== ENCOUNTER 2022-01-08 08:53 | Emergency (ER) | payer OTHER, MEDICAID ==
[~2022-01-08] VITALS: Ht 165.1 cm; Wt 102.3 kg
[2022-01-08 09:27] VITALS: BP 132/95
[2022-01-08] MEDS ORDERED: NAPR-56 PO (09:52)
[2022-01-08] MEDS ORDERED: naproxen 500mg tablet PO ONE (09:55)
== END 2022-01-08 10:31 | disposition home or self-care (01) ==
LOC: ER 08:54
DX: G89.29 Other chronic pain (principal); M25.552 Pain in left hip; E03.9 Hypothyroidism, unspecified; Z90.49 Acquired absence of other specified parts of digestive tract; Z88.0 Allergy status to penicillin; Z88.8 Allergy status to other drugs, medicaments and biological substances; Z79.2 Long term (current) use of antibiotics; Z79.899 Other long term (current) drug therapy
CPT/HCPCS: 29505; 73502; 99284

== ENCOUNTER 2022-11-22 15:48 | Emergency (ER) | payer OTHER, MEDICAID ==
[~2022-11-22] VITALS: Ht 162.6 cm; Wt 117.0 kg
[2022-11-22] MEDS ORDERED: ipratropium/albuterol 3ml nebule NEB ONE (15:55)
[2022-11-22] MEDS ORDERED: predniSONE 20 mg tablet PO ONE (15:55)
[2022-11-22] MEDS ORDERED: cephalexin 250mg capsule PO ONE (16:45)
[2022-11-22] MEDS ORDERED: PRED20TA PO (16:49)
[2022-11-22] MEDS ORDERED: CEPH250T PO (16:49)
[2022-11-22] MEDS ORDERED: ALBU6.7H14 INH (16:49)
[2022-11-22 17:36] VITALS: BP 126/89
== END 2022-11-22 17:37 | disposition home or self-care (01) ==
LOC: ER 15:48
DX: J20.9 Acute bronchitis, unspecified (principal); Z20.822 Contact with and (suspected) exposure to COVID-19; Z71.6 Tobacco abuse counseling; R05.9 Cough, unspecified; E03.9 Hypothyroidism, unspecified; G89.29 Other chronic pain; M54.50 Low back pain, unspecified; F31.9 Bipolar disorder, unspecified; Z88.0 Allergy status to penicillin; Z88.8 Allergy status to other drugs, medicaments and biological substances
CPT/HCPCS: 71045; 87811; 94640; 99284; J7512; 94760

== ENCOUNTER 2023-10-03 16:54 | Emergency (ER) | payer OTHER, MEDICAID ==
[~2023-10-03] VITALS: Ht 165.1 cm; Wt 100.0 kg
[~2023-10-03 16:54] MED LIST changes: +ALBU6.7H14 INH
[2023-10-03 17:37] LABS: BASOPHILS # (AUTO) 0.1 X10'3 (0-0.2); BASOPHILS % (AUTO) 0.9 % (0-1); EOSINOPHILS # (AUTO) 0.2 X10'3 (0-0.9); EOSINOPHILS % (AUTO) 1.4 % (0-6); HEMATOCRIT 39.2 % (35.0-45.0); HEMOGLOBIN 13.4 g/dl (12.0-16.0); LYMPHOCYTES # (AUTO) 3.1 X10'3 (1.1-4.8); LYMPHOCYTES % (AUTO) 25.4 % (21-51); MEAN CORPUSCULAR HEMOGLOBIN 30.6 PG (27.0-31.0); MEAN CORPUSCULAR HGB CONC 34.1 g/dL (33.0-36.5); MEAN CORPUSCULAR VOLUME 89.7 FL (78-98); MONOCYTES # (AUTO) 0.6 X10'3 (0-0.9); MONOCYTES % (AUTO) 4.5 % (2-12); NEUTROPHILS # (AUTO) 8.4 X10'3 (1.8-7.7); NEUTROPHILS % (AUTO) 67.8 % (42-75); PLATELET COUNT 327 X10'3 (140-440); RED BLOOD COUNT 4.37 X10'6 (4.20-5.60); RED CELL DISTRIBUTION WIDTH 13.6 % (11.5-14.5); WHITE BLOOD COUNT 12.4 X10'3 (4.5-11.0)
[2023-10-03 17:39] LABS: ALBUMIN 3.6 G/DL (3.4-5.0); ANION GAP 11 (8-16); BLOOD UREA NITROGEN 6 MG/DL (7-18); BUN/CREATININE RATIO 7.3 (10.0-20.0); CALCIUM 8.5 MG/DL (8.5-10.1); CHLORIDE 104 MMOL/L (99-107); CREATININE 0.82 MG/DL (0.40-0.90); GLUCOSE 98 MG/DL (70-104); POTASSIUM 3.9 MMOL/L (3.5-5.1); SODIUM 142 MMOL/L (135-145); TOTAL CARBON DIOXIDE 26.9 MMOL/L (24-32); eCRCL 80 ML/MIN; eGFR 76 ML/MIN
[2023-10-03 17:40] LABS: ETHANOL < 10 MG/DL (<10)
[2023-10-03 18:13] LABS: URINE HCG NEGATIVE (NEG)
[2023-10-03] MEDS: normal saline 1000ML IV soln IVB ONE (18:14)
[2023-10-03 18:29] LABS: BILIRUBIN,URINE NEGATIVE (Neg); CLARITY,URINE CLEAR (Clear); COLOR,URINE AMBER (Yellow); GLUCOSE, URINE NEGATIVE (Neg); KETONES,URINE NEGATIVE (Neg); LEUKOCYTE ESTERASE ,URINE NEGATIVE (Neg); NITRITES, URINE NEGATIVE (Neg); OCCULT BLOOD,URINE NEGATIVE (Neg); PH,URINE 6.5 (4.8-8.0); PROTEIN,URINE NEGATIVE (Neg); UROBILINOGEN,URINE 0.2 E.U/dL (0.2-1.0)
[2023-10-03 18:33] LABS: UA COLLECTION TYPE CLN CATCH MIDSTREAM
[2023-10-03 19:00] LABS: URINE AMPHETAMINE SCREEN NEGATIVE (Neg); URINE BARBITUATE SCREEN NEGATIVE (Neg); URINE BENZODIAZEPINES SCREEN NEGATIVE (Neg); URINE CANNABINOID SCREEN NEGATIVE (Neg); URINE COCAINE SCREEN NEGATIVE (Neg); URINE METHADONE SCREEN NEGATIVE (Neg); URINE OPIATE SCREEN NEGATIVE (Neg); URINE PHENCYCLIDINE SCREEN NEGATIVE (Neg)
[2023-10-03] MEDS: famotidine/PF 10 mg/ml inj IV ONE (19:05)
[2023-10-03] MEDS: ondansetron/PF 4mg/2ml inj IV ONE (19:05)
[2023-10-03 19:20] LABS: LIPASE 16 U/L (16-77); THYROID STIMULATING HORMONE 4.69 ulU/ml (0.34-4.50)
[2023-10-03] MEDS ORDERED: OLAN20TA34 PO (20:34)
[2023-10-03] MEDS ORDERED: LEVO100T9 PO (20:34)
[2023-10-03] MEDS ORDERED: CARI1.5C PO (20:34)
[2023-10-03] MEDS ORDERED: DOCU100C40 PO (20:34)
[2023-10-03] MEDS ORDERED: FURO20TA4 PO (20:34)
[2023-10-03] MEDS ORDERED: CARI4.5C PO (20:34)
[2023-10-03] MEDS ORDERED: METF-900 PO (20:34)
[2023-10-03] MEDS: olanzapine 10mg tablet PO SCH ×2 (21:51→23:24)
[2023-10-03] MEDS: docusate sod 100mg capsule PO SCH (23:21)
[2023-10-03] MEDS: CARIPRAZINE 1.5 MG CAPSULE PO SCH (23:23)
[2023-10-04] MEDS ORDERED: CARIPRAZINE 1.5 MG CAPSULE PO SCH (00:05)
[2023-10-04] MEDS: metFORMIN 500mg tablet PO SCH (08:56)
[2023-10-04] MEDS: furosemide 20MG tablet PO SCH (08:56)
[2023-10-04] MEDS: levoTHYROXINE 100mcg tablet PO SCH (08:56)
[2023-10-04] MEDS: CARIPRAZINE 1.5 MG CAPSULE PO SCH (08:58)
[2023-10-04 10:18] VITALS: BP 117/66; PULSE 89; RESP 16; TEMP 98.6; O2SAT 95
[2023-10-04] MEDS ORDERED: olanzapine 10mg tablet PO SCH (21:00)
== END 2023-10-04 10:33 | disposition home or self-care (01) ==
LOC: ER 16:54
DX: F20.9 Schizophrenia, unspecified (principal); Z20.822 Contact with and (suspected) exposure to COVID-19; F29 Unspecified psychosis not due to a substance or known physiological condition; E03.9 Hypothyroidism, unspecified; F31.9 Bipolar disorder, unspecified; G89.29 Other chronic pain
CPT/HCPCS: 36415; 80048; 80305; 80320; 81003; 81025; 82948; 83690; 84443; 85025; 87811; 96361; 96374; 96375; 99284; J2405; J3490; J7030

== ENCOUNTER 2024-03-21 20:13 | Emergency (ER) | payer OTHER, MEDICAID ==
[~2024-03-21] VITALS: Ht 162.6 cm; Wt 123.6 kg
[~2024-03-21 20:13] MED LIST changes: -ALBU6.7H14 INH; +CARI1.5C PO; +CARI4.5C PO; -CARI6CAP PO; -CHOL500050 PO; -CIME200T12 PO; -DICL25TA10 PO; +DOCU100C40 PO; +FURO20TA4 PO; -LEVO100T PO; +LEVO100T9 PO; +METF-900 PO; -NICO-687 TD; -NICO-907 BC; -OLAN10TA3 PO; +OLAN20TA81 PO; -SERT100T PO
[2024-03-21 20:50] LABS: BASOPHILS # (AUTO) 0.1 X10'3 (0-0.2); BASOPHILS % (AUTO) 0.8 % (0-1); EOSINOPHILS # (AUTO) 0.3 X10'3 (0-0.9); EOSINOPHILS % (AUTO) 2.5 % (0-6); HEMATOCRIT 39.6 % (35.0-45.0); HEMOGLOBIN 13.1 g/dl (12.0-16.0); LYMPHOCYTES # (AUTO) 3.7 X10'3 (1.1-4.8); MEAN CORPUSCULAR HEMOGLOBIN 29.9 PG (27.0-31.0); MEAN CORPUSCULAR VOLUME 90.6 FL (78-98); MEAN PLATELET VOLUME 7.5 FL (7.4-10.4); MONOCYTES # (AUTO) 0.6 X10'3 (0-0.9); MONOCYTES % (AUTO) 6.2 % (2-12); NEUTROPHILS # (AUTO) 5.7 X10'3 (1.8-7.7); NEUTROPHILS % (AUTO) 54.5 % (42-75); PLATELET COUNT 317 X10'3 (140-440); RED BLOOD COUNT 4.37 X10'6 (4.20-5.60); RED CELL DISTRIBUTION WIDTH 13.7 % (11.5-14.5); WHITE BLOOD COUNT 10.4 X10'3 (4.5-11.0)
[2024-03-21 21:06] LABS: ALANINE AMINOTRANSFERASE 20 U/L (12-78); ALBUMIN 3.3 G/DL (3.4-5.0); ALBUMIN/GLOBULIN RATIO 0.9 (1.1-1.5); ALKALINE PHOSPHATASE 102 IU/L (46-116); ANION GAP 6 (8-16); ASPARTATE AMINO TRANSFERASE 13 U/L (10-37); BILIRUBIN,TOTAL 0.2 MG/DL (0.1-1.0); BLOOD UREA NITROGEN 14 MG/DL (7-18); BUN/CREATININE RATIO 15.7 (10.0-20.0); CALCIUM 8.1 MG/DL (8.5-10.1); CHLORIDE 104 MMOL/L (99-107); CREATININE 0.89 MG/DL (0.40-0.90); GLUCOSE 106 MG/DL (70-104); POTASSIUM 3.7 MMOL/L (3.5-5.1); SODIUM 137 MMOL/L (135-145); TOTAL CARBON DIOXIDE 26.6 MMOL/L (24-32); TOTAL PROTEIN 7.1 G/DL (6.4-8.2); eCRCL 70 ML/MIN; eGFR 69 ML/MIN
[2024-03-21 21:43] LABS: BILIRUBIN,URINE NEGATIVE (Neg); CLARITY,URINE CLEAR (Clear); COLOR,URINE YELLOW (Yellow); GLUCOSE, URINE NEGATIVE (Neg); KETONES,URINE NEGATIVE (Neg); LEUKOCYTE ESTERASE ,URINE NEGATIVE (Neg); NITRITES, URINE NEGATIVE (Neg); OCCULT BLOOD,URINE NEGATIVE (Neg); PROTEIN,URINE NEGATIVE (Neg)
[2024-03-21 21:45] LABS: UA COLLECTION TYPE CLN CATCH MIDSTREAM
[2024-03-21 21:48] LABS: URINE AMPHETAMINE SCREEN NEGATIVE (Neg); URINE BARBITUATE SCREEN NEGATIVE (Neg); URINE BENZODIAZEPINES SCREEN NEGATIVE (Neg); URINE CANNABINOID SCREEN NEGATIVE (Neg); URINE COCAINE SCREEN NEGATIVE (Neg); URINE METHADONE SCREEN NEGATIVE (Neg); URINE OPIATE SCREEN NEGATIVE (Neg); URINE PHENCYCLIDINE SCREEN NEGATIVE (Neg)
[2024-03-21 21:49] LABS: PRO BRAIN NATRIURETIC PEPTIDE < 30 PG/ML (0-125); THYROID STIMULATING HORMONE 6.56 ulU/ml (0.34-4.50)
[2024-03-21 21:50] LABS: ETHANOL < 10 MG/DL (<10)
[2024-03-21 22:08] LABS: URINE HCG NEGATIVE (NEG)
[2024-03-21 22:30] LABS: FREE T4 (FREE THYROXINE) 0.93 NG/DL (0.73-1.40)
[2024-03-21 22:47] VITALS: TEMP 98.2
[2024-03-21 23:09] VITALS: BP 106/62; PULSE 68; RESP 18; O2SAT 98
== END 2024-03-21 23:16 | disposition home or self-care (01) ==
LOC: ER 20:13
DX: R55 Syncope and collapse (principal); Z88.0 Allergy status to penicillin; Z88.6 Allergy status to analgesic agent; Z88.8 Allergy status to other drugs, medicaments and biological substances; Z79.899 Other long term (current) drug therapy
CPT/HCPCS: 36415; 71045; 80053; 80305; 80320; 81003; 81025; 83880; 84439; 84443; 84484; 85025; 93005; 99285